=== PATIENT | female | born 1930 | race Caucasian/White ===

== ENCOUNTER 2019-05-22 17:40 | Emergency (ER) | payer MEDICARE ==
[~2019-05-22] VITALS: Ht 175.3 cm; Wt 61.7 kg
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
[2019-05-22] MEDS ORDERED: ONDANSETRON HCL/PF 4 MG/2 ML VIAL ONE (18:02)
--- NOTE | 2019-05-22 18:02 | NUR ---
AT BEDSIDE FOR EVAL.
[2019-05-22] MEDS ORDERED: ACETAMINOPHEN ES 500 MG TABLET ONE ×2 (18:25→20:10)
[2019-05-22] MEDS ORDERED: ONDANSETRON HCL/PF 4 MG/2 ML VIAL IVP ONE (18:30)
[2019-05-22] MEDS ORDERED: ACETAMINOPHEN ES 500 MG TABLET PO ONE ×2 (18:30→20:30)
[2019-05-22 18:37] LABS: BASOPHILS % (AUTO) 0.4 % (0.0-2.0); EOSINOPHILS % (AUTO) 1.3 % (0.0-6.0); HEMATOCRIT 41 % (33-45); HEMOGLOBIN 13.8 g/dL (11.5-14.8); LYMPHOCYTES # (AUTO) 1.2 /CMM (0.8-4.8); LYMPHOCYTES % (AUTO) 18.5 % (20.0-44.0); MEAN CORPUSCULAR HGB CONC 33 g/dl (31.0-36.0); MEAN CORPUSCULAR VOLUME 97 fL (82-100); MONOCYTES # (AUTO) 0.3 /CMM (0.1-1.30); MONOCYTES % (AUTO) 5.1 % (2.0-12.0); NEUTROPHILS % (AUTO) 74.7 % (43.0-81.0); PLATELET COUNT (AUTO) 110 /CMM (150-450); RED BLOOD CELL COUNT(AUTO) 4.25 MIL/uL (4.0-5.2); WHITE BLOOD COUNT (AUTO) 6.7 K/uL (4.3-11.0)
[2019-05-22 18:49] LABS: CALCIUM, SERUM 8.4 mg/dL (8.5-10.1); CARBON DIOXIDE 31 mmol/L (21-32); CHLORIDE 106 mmol/L (98-107); CREATININE 0.8 mg/dL (0.6-1.3); GLUCOSE 117 mg/dL (74-106); POTASSIUM 4.1 mmol/L (3.5-5.1); SODIUM SERUM 143 mmol/L (136-145); UREA NITROGEN, BLOOD 23 mg/dL (7-18)
[2019-05-22] MEDS ORDERED: MECLIZINE HCL 12.5 MG TABLET PO ONE (19:00)
--- NOTE | 2019-05-22 19:07 | NUR ---
REPORT REC'D FROM LUIS ENRIQUE LOVELACE.
[2019-05-22] MEDS ORDERED: MECLIZINE HCL 25 MG TABLET ONE (19:10)
--- NOTE | 2019-05-22 19:16 | NUR ---
PT WAS PLACED ON THE MONITOR AND CONTINUOUS PULSE OX. PT WAS C/O BLE PAIN AND WAS READJUSTED IN THE BED. PT REC'D WARM BLANKETS X2. WILL CONTINUE TO MONITOR THE PT.
--- NOTE | 2019-05-22 19:29 | NUR ---
CALL NEIGHBOR, VISHNU SOUSA , IF PT IS ADMITTED OR RETURN HOME CALL.
--- NOTE | 2019-05-22 20:11 | NUR ---
VERBAL ORDER FOR 1GM TYLENOL PO.
--- NOTE | 2019-05-22 20:35 | NUR ---
DR REAGAN IS AT THE BEDSIDE SPEAKING TO THE PT.
--- NOTE | 2019-05-22 21:00 | NUR ---
PT AMBULATED TO THE BATHROOM WITH A WALKER. NO DEFICITS NOTED.
--- NOTE | 2019-05-22 21:18 | NUR ---
DR. VASQUEZ IS AT THE BEDSIDE SPEAKING TO THE PT.
--- NOTE | 2019-05-22 21:30 | NUR ---
IV removed. Catheter intact and site benign. Pressure and 4x4 applied to site. No bleeding noted. Patient discharged to home in stable condition. Written and verbal after care instructions given. Patient verbalizes understanding of instruction AND RX. PT'S NEIGHBOR, VISHNU, CAME TO TAKE THE PT AND HER HOME. PT AMBULATED OUT WITH A WALKER. STEADY GAIT NOTED. VSS. NAD NOTED.
[2019-05-22 21:48] VITALS: BP 129/68
== END 2019-05-22 21:49 | disposition home or self-care (01) ==
LOC: ER 17:43
DX: S80.12XA Contusion of left lower leg, initial encounter (principal); R42 Dizziness and giddiness; E05.90 Thyrotoxicosis, unspecified without thyrotoxic crisis or storm; I25.10 Atherosclerotic heart disease of native coronary artery without angina pectoris; R51 Headache; R07.81 Pleurodynia; Z95.0 Presence of cardiac pacemaker; W18.39XA Other fall on same level, initial encounter; Y93.89 Activity, other specified; Y92.89 Other specified places as the place of occurrence of the external cause; Y99.8 Other external cause status
CPT/HCPCS: 36415; 70450; 71250; 74176; 80048; 84484; 85025; 85730; 93005; 96374; 99284; J2405; J8597